=== PATIENT | male | born 1995 | race Caucasian/White ===

== ENCOUNTER 2016-12-03 09:47 | Emergency (ER) ==
[2016-12-03 09:58] VITALS: BP 149/73; TEMP 101.3; BMI 27.3
[2016-12-03 10:16] LABS: BASOPHILS % (AUTO) 0.2 % (0.0-3.0); EOSINOPHILS % (AUTO) 0.4 % (0.0-7.0); HEMATOCRIT 40.7 % (42.0-52.0); HEMOGLOBIN 14.5 g/dl (14.0-18.0); IMMATURE GRANULOCYTE % (AUTO) 0.2 % (0.0-5.0); LYMPHOCYTES # (AUTO) 0.4 K/uL (0.60-3.4); LYMPHOCYTES % (AUTO) 8.1 (10.0-50.0); MEAN CORPUSCULAR HEMOGLOBIN 30.8 pg (27.0-31.0); MEAN CORPUSCULAR HGB CONC 35.6 (31.8-35.4); MEAN CORPUSCULAR VOLUME 86.4 fl (80.0-94.0); MONOCYTES # (AUTO) 0.9 K/uL (0.4-2.0); MONOCYTES % (AUTO) 19.9 (0-10); NEUTROPHILS # (AUTO) 3.3 K/ul (2.0-6.9); NEUTROPHILS % (AUTO) 71.2; PLATELET COUNT 234 10^3/uL (140-440); RED BLOOD COUNT 4.71 10^6/ul (4.70-6.10); WHITE BLOOD COUNT 4.67 K/ul (4.2-10.2)
[2016-12-03] MEDS ORDERED: ZITHROMAX PO STA (10:16)
[2016-12-03] MEDS ORDERED: DECADRON 4 MG/ML SDV IM STA ×2 (10:16→10:17)
[2016-12-03] MEDS ORDERED: DUONEB NEB STA (10:22)
--- NOTE | 2016-12-03 10:28 | DI ---
EXAM: Chest two views HISTORY: Cough COMPARISON: None TECHNIQUE: Two views of the chest were performed FINDINGS: The lungs are clear. There is no pleural effusion or pneumothorax. The heart is normal in size. The mediastinal contour is normal. There are no acute abnormalities of the bones. IMPRESSION: No acute cardiopulmonary process.
[2016-12-03 10:35] LABS: ALBUMIN 4.4 g/dL (3.4-5.0); ALBUMIN/GLOBULIN RATIO 1.33; ANION GAP 13.3; BILIRUBIN,TOTAL 0.45 mg/dL (0.00-1.20); BUN/CREATININE RATIO 12.71; CALCIUM 9.5 mg/dL (8.2-10.2); CREATININE 1.18 mg/dL (0.60-1.10); POTASSIUM 4.3 mmol/L (3.5-5.1); TOTAL PROTEIN 7.7 g/dL (6.4-8.2)
[2016-12-03 10:40] LABS: FLU INTERNAL QC INTERNAL QC VALID; RAPID FLU A NEGATIVE (NEGATIVE); RAPID FLU B NEGATIVE (NEGATIVE)
[2016-12-03] MEDS ORDERED: SODIUM CHLORIDE 1,000 ML IV STA ×2 (10:41→11:47)
[2016-12-03] MEDS ORDERED: ROCEPHIN 1 GM in SODIUM CHLORIDE 50 ML IV STA (10:41)
[2016-12-03] MEDS ORDERED: TYLENOL PO STA (10:41)
[2016-12-03] MEDS ORDERED: ROCEPHIN ONE (10:45)
--- NOTE | 2016-12-03 13:02 | ED.PDOC ---
General ED Provider: Dr. LOR PRINCE Chief Complaint: Fever Stated Complaint: FEVER, COUGH , CHILLS WEAK Time Seen by Physician: 10:00 Mode of Arrival: Walk-In Information Source: Patient Exam Limitations: No limitations Primary Care Provider: ZEB GRAY Nursing and Triage Documentation Reviewed and Agree: Yes Respiratory Complaint Exam - Respiratory Complaint/Exam Onset/Duration: 1 DAY Symptoms Are: Still present Timing: Intermittent Initial Severity: Moderate Current Severity: Moderate Location: Chest Character: Reports: Non-productive cough Aggravating: Reports: None Alleviating: Reports: None Associated Signs and Symptoms: Denies: Rapid breathing, Dyspnea, Fever, Chills, Chest pain, Pleuritic chest pain, Wheezing, Hemoptysis, Dizziness, Calf pain, Calf swelling, Edema, URI, Nasal congestion, Hoarseness, Sinus discomfort, Vomiting, Sore throat, Weight loss, Decreased oral intake, Increased thirst, Increased appetite, Increased urination Related History: Reports: Similar episode History of Healthcare-Acquired Pneumonia: No Related Surgical History: Reports: None Pulmonary Embolism Risk Factors: None Cardiac Risk Factors: Reports: None Pseudomonas Risk Factors: Reports: None Tuberculosis Risk Factors: Reports: None Status Asthmaticus Risk Factors: Reports: None Home Oxygen Use: No Recent Stress Test: No Recent Echo/LV Function: No Current Antibiotic Use: No Current Asthma Medication Use: No Respiratory Distress: None Inadequate Respiratory Effort: No Dysphagia Present: No Stridor Present: No JVD Present: No Accessory Muscle Use: No Retractions: Not Present Diminished Breath Sounds: No Sinus Tenderness: None Grunting Respirations: No Kussmaul Respirations: No Differential Diagnoses: Pneumonia, Bronchitis Review of Systems - Review Of Systems Constitutional: Reports: Malaise Eyes: Reports: No symptoms Ears, Nose, Mouth, Throat: Reports: No symptoms Respiratory: Reports: Cough Cardiac: Reports: No symptoms GI: Reports: No symptoms : Reports: No symptoms Musculoskeletal: Reports: No symptoms Skin: Reports: No symptoms Neurological: Reports: No symptoms Endocrine: Reports: No symptoms Hematologic/Lymphatic: Reports: No symptoms All Other Systems: Reviewed and Negative Past Medical History - Past Medical History Previously Healthy: Yes Endocrine: Reports: None Cardiovascular: Reports: Hypertension Respiratory: Reports: None Hematological: Reports: None Gastrointestinal: Reports: None Genitourinary: Reports: None Neuro/Psych: Reports: None Musculoskeletal: Reports: None Cancer: Reports: None - Surgical History General Surgical History: Reports: Unknown - Family History Family History: Reports: Unknown - Social History Smoking Status: Current some day smoker Hx Substance Use: No Alcohol Screening: Occasionally Physical Exam - Physical Exam Appearance: Well-appearing, No pain distress, Well-nourished Eyes: GERARDO, EOMI, Conjunctiva clear ENT: Ears normal, Nose normal, Oropharynx normal Respiratory: Airway patent, Breath sounds clear, Breath sounds equal, Respirations nonlabored Cardiovascular: RRR, Pulses normal, No rub, No murmur GI/: Soft, Nontender, No masses, Bowel sounds normal, No Organomegaly Musculoskeletal: Normal strength, ROM intact, No edema, No calf tenderness Skin: Warm, Dry, Normal color Neurological: Sensation intact, Motor intact, Reflexes intact, Cranial nerves intact, Alert, Oriented Psychiatric: Affect appropriate, Mood appropriate Interpretation - Radiology Interpretation Radiology Interpretation By: Radiologist Radiology Results: No acute changes Critical Care Note - Critical Care Note Total Time (mins): 0 Course - Course Hematology/Chemistry: 12/03/16 10:05 12/03/16 10:05 Orders, Labs, Meds: Lab Review 12/03/16 10:05 WBC 4.67 RBC 4.71 Hgb 14.5 Hct 40.7 L MCV 86.4 MCH 30.8 MCHC 35.6 H RDW Coeff of Kaleb 12.0 Plt Count 234 Immature Gran % (Auto) 0.2 Neut % (Auto) 71.2 Lymph % (Auto) 8.1 L [place] % (Auto) 19.9 H Eos % (Auto) 0.4 Baso % (Auto) 0.2 Immature Gran # (Auto) 0.0 Neut # 3.3 Lymph # 0.4 L [place] # 0.9 Eos # 0.0 Baso # 0.0 Sodium 136 Potassium 4.3 Chloride 100 Carbon Dioxide 27 Anion Gap 13.3 BUN 15 Creatinine 1.18 H Estimated GFR (MDRD) 76.00 BUN/Creatinine Ratio 12.71 Glucose 105 H Calcium 9.5 Total Bilirubin 0.45 AST 19 ALT 20 Alkaline Phosphatase 79 Total Protein 7.7 Albumin 4.4 Globulin 3.3 Albumin/Globulin Ratio 1.33 Influenza A (Rapid) Negative Influenza B (Rapid) Negative Orders Category Date Time Status NEBULIZER TREATMENT Stat CARDIO 12/03/16 10:22 Completed CBC W/ AUTO DIFF Stat LAB 12/03/16 10:05 Completed COMPREHENSIVE METABOLIC PANEL Stat LAB 12/03/16 10:05 Completed MOLECULAR GROUP A STREP Stat LAB 12/03/16 10:05 Results RAPID FLU A/B Stat LAB 12/03/16 10:05 Completed STREP SCREEN Stat LAB 12/03/16 10:05 Results Acetaminophen [Tylenol] MEDS 12/03/16 10:41 Discontinued 1,000 mg PO ONCE STA Ceftriaxone Sodium [Rocephin] MEDS 12/03/16 10:45 Discontinued 1 gm .ROUTE .STK-MED ONE Ceftriaxone Sodium [Rocephin] 1 gm MEDS 12/03/16 10:41 Discontinued 0.9 % Sodium Chloride [Sodium Chloride] 50 ml IV ONCE Dexamethasone 4 mg/ml Inj [Decadron 4 mg/ml Sdv] MEDS 12/03/16 10:17 Discontinued 4 mg IM ONCE STA Ipratropium/Albuterol Neb [Duoneb] MEDS 12/03/16 10:22 Discontinued 1 vial NEB ONCE STA Sodium Chloride 0.9% [Sodium Chloride] 1,000 ml MEDS 12/03/16 10:41 Discontinued IV BOLUS Sodium Chloride 0.9% [Sodium Chloride] 1,000 ml MEDS 12/03/16 11:47 Discontinued IV BOLUS CHEST, 2 VIEWS PA & LAT Stat RADS 12/03/16 10:06 Completed Medications Discontinued Medications Generic Name Dose Route Start Last Admin Trade Name Freq PRN Reason Stop Dose Admin Acetaminophen 1,000 mg 12/03/16 10:41 12/03/16 11:02 Tylenol PO 12/03/16 10:42 1,000 mg ONCE STA Administration Albuterol/Ipratropium 1 vial 12/03/16 10:22 12/03/16 10:46 Duoneb NEB 12/03/16 10:23 1 vial ONCE STA Administration Dexamethasone Sodium Phosphate 4 mg 12/03/16 10:17 12/03/16 10:39 Decadron 4 Mg/Ml Sdv IM 12/03/16 10:18 4 mg ONCE STA Administration Sodium Chloride 1,000 mls @ 1,000 mls/hr 12/03/16 10:41 12/03/16 11:06 Sodium Chloride IV 12/03/16 11:40 1,000 mls/hr BOLUS STA Administration Ceftriaxone Sodium 1 gm/ 50 mls @ 75 mls/hr 12/03/16 10:41 12/03/16 11:06 Sodium Chloride IV 12/03/16 11:20 75 mls/hr ONCE STA Administration Sodium Chloride 1,000 mls @ 1,000 mls/hr 12/03/16 11:47 12/03/16 11:58 Sodium Chloride IV 12/03/16 12:46 1,000 mls/hr BOLUS STA Administration Vital Signs: Temp Pulse Resp BP Pulse Ox 12/03/16 09:47 101.3 F H 109 H 18 149/73 H 94 L Departure - Departure Time of Disposition: 13:02 Disposition: HOME SELF-CARE Discharge Problem: Fever, Acute bronchitis Instructions: Acute Bronchitis in Children (ED) Condition: Good Pt referred to PMD for follow-up: No Additional Instructions: Please call your Family Physician as soon as possible to schedule a follow-up appointment. Prescriptions: Amoxicillin 500 mg PO Q8HR #21 tablet Azithromycin [Zithromax] 500 mg PO DAILY #6 tablet Allergies/Adverse Reactions: Allergies No Known Drug Allergies Adverse Reaction (Verified 12/03/16 09:53) Home Medications: Ambulatory Orders Amoxicillin 500 mg PO Q8HR #21 tablet 12/03/16 Azithromycin [Zithromax] 500 mg PO DAILY #6 tablet 12/03/16 Lisinopril [Zestril] 10 mg PO DAILY 12/03/16
== END 2016-12-03 13:16 | disposition home or self-care (01) ==
LOC: ED 09:47
DX: J20.9 Acute bronchitis, unspecified (principal); F17.210 Nicotine dependence, cigarettes, uncomplicated
CPT/HCPCS: 36415; 80053; 85025; 87651; 87804; 87880; 94640; 96361; 96365; 96372; 99283

== ENCOUNTER 2016-12-05 18:19 | Emergency (ER) ==
[2016-12-05 18:23] VITALS: BP 143/88; TEMP 99.3; BMI 28.1
--- NOTE | 2016-12-05 18:56 | ED.PDOC ---
General ED Provider: Dr. MARICARMEN PAPPAS JR Chief Complaint: Respiratory Complaint Stated Complaint: seen in er zithromax day three bodyaches and congestion. cough non-productive clear nasal drainage 3 1/2 WEEKS hurts when he coughs. [ End ] Time Seen by Physician: 18:57 Mode of Arrival: Walk-In Information Source: Patient Exam Limitations: No limitations Primary Care Provider: ZEB GRAY Nursing and Triage Documentation Reviewed and Agree: No Review of Systems - Review Of Systems Constitutional: Reports: Chills, Malaise Ears, Nose, Mouth, Throat: Reports: No symptoms Respiratory: Reports: Cough Cardiac: Reports: No symptoms GI: Reports: No symptoms : Reports: No symptoms Musculoskeletal: Reports: Muscle pain Skin: Reports: No symptoms Neurological: Reports: No symptoms Endocrine: Reports: No symptoms Hematologic/Lymphatic: Reports: No symptoms All Other Systems: Other Past Medical History - Past Medical History Previously Healthy: Yes Endocrine: Reports: None Cardiovascular: Reports: Hypertension Respiratory: Reports: None Hematological: Reports: None Gastrointestinal: Reports: None Genitourinary: Reports: None Neuro/Psych: Reports: None Musculoskeletal: Reports: None Cancer: Reports: None Other Pertinent Past Medical History: ADHD A CHILD - Surgical History General Surgical History: Reports: Other (PE TUBES AT 10 YR OF AGE ) - Family History Family History: Reports: Unknown - Social History Smoking Status: Former smoker Hx Substance Use: No Alcohol Screening: Occasionally Physical Exam - Physical Exam Appearance: Ill-appearing, Thin Ill-appearing: Moderate Pain Distress: Moderate Eyes: GERARDO, EOMI, Conjunctiva clear ENT: Oropharynx normal, Erythema Neck: Supple Respiratory: Airway patent, Breath sounds equal, Rhonchi, Wheezes Cardiovascular: RRR, Pulses normal, No rub, No murmur GI/: Soft, Nontender, No masses, Bowel sounds normal, No Organomegaly Musculoskeletal: Normal strength, ROM intact, No edema, No calf tenderness Skin: Warm, Dry, Normal color Psychiatric: Affect appropriate, Mood appropriate Critical Care Note - Critical Care Note Total Time (mins): 0 Course - Course Vital Signs: Temp Pulse Resp BP Pulse Ox 12/05/16 18:20 99.3 F 84 20 143/88 H 95 Departure - Departure Time of Disposition: 18:59 Disposition: HOME SELF-CARE Discharge Problem: Acute bronchitis Instructions: COPD (Chronic Obstructive Pulmonary Disease) (ED), Chronic Bronchitis (ED) Condition: Stable Pt referred to PMD for follow-up: Yes Additional Instructions: bronchitis need to take cough medication to clear mucus and relieve congestion(DO NOT SMOKE ) increase fluids by six cups a day for three days ma finish antibiotic but recommend begin new antibiotic- Augmentin recheck PMD one week if not resolved may begin steroid dose pack if not resolving quickly may add Mucinex to cough medication as needed Prescriptions: Amoxicillin/Potassium Clav [Augmentin 875-125 mg Tab] 1 tab PO BIDWM #14 tablet Guaifenesin/Codeine Phosphate [Robitussin AC Syrup] 10 ml PO Q6H PRN #240 ml PRN Reason: Cough Prednisone 20 mg PO DIRECTED #50 tablet Allergies/Adverse Reactions: Allergies No Known Drug Allergies Adverse Reaction (Verified 12/05/16 18:23) Home Medications: Ambulatory Orders Azithromycin [Zithromax] 500 mg PO DAILY #6 tablet 12/03/16 Lisinopril [Zestril] 10 mg PO DAILY 12/03/16 Amoxicillin/Potassium Clav [Augmentin 875-125 mg Tab] 1 tab PO BIDWM #14 tablet 12/05/16 Guaifenesin/Codeine Phosphate [Robitussin AC Syrup] 10 ml PO Q6H PRN #240 ml Prednisone 20 mg PO DIRECTED #50 tablet 12/05/16
== END 2016-12-05 19:28 | disposition home or self-care (01) ==
LOC: ED 18:19
DX: J20.9 Acute bronchitis, unspecified (principal)
CPT/HCPCS: 99282

== ENCOUNTER 2017-01-29 10:58 | Emergency (ER) ==
[2017-01-29 11:12] VITALS: BP 164/83; TEMP 101.1; BMI 25.4
== END 2017-01-29 12:40 | disposition left against medical advice (07) ==
LOC: ED 10:58
DX: R05 Cough (principal); J02.9 Acute pharyngitis, unspecified; R52 Pain, unspecified

== ENCOUNTER 2017-09-03 04:10 | Emergency (ER) | payer OTHER ==
[2017-09-03 04:48] VITALS: BMI 26.6
[2017-09-03] MEDS ORDERED: SODIUM CHLORIDE 1,000 ML IV STA ×2 (04:54→06:54)
[2017-09-03] MEDS ORDERED: ROCEPHIN 1 GM in SODIUM CHLORIDE 50 ML IV STA (04:54)
[2017-09-03] MEDS ORDERED: ROCEPHIN ONE (05:06)
[2017-09-03 05:09] LABS: BASOPHILS % (AUTO) 0.2 % (0.0-3.0); HEMATOCRIT 45.7 % (42.0-52.0); HEMOGLOBIN 16.5 g/dl (14.0-18.0); IMMATURE GRANULOCYTE % (AUTO) 0.8 % (0.0-5.0); LYMPHOCYTES # (AUTO) 1.1 K/uL (0.60-3.4); LYMPHOCYTES % (AUTO) 4.6 (10.0-50.0); MEAN CORPUSCULAR HEMOGLOBIN 30.6 pg (27.0-31.0); MEAN CORPUSCULAR HGB CONC 36.1 (31.8-35.4); MEAN CORPUSCULAR VOLUME 84.8 fl (80.0-94.0); MONOCYTES # (AUTO) 2.6 K/uL (0.4-2.0); MONOCYTES % (AUTO) 11.1 (0-10); NEUTROPHILS # (AUTO) 19.7 K/ul (2.0-6.9); NEUTROPHILS % (AUTO) 83.3; PLATELET COUNT 288 10^3/uL (140-440); RED BLOOD COUNT 5.39 10^6/ul (4.70-6.10); WHITE BLOOD COUNT 23.65 K/ul (4.2-10.2)
[2017-09-03 05:27] LABS: FLU INTERNAL QC INTERNAL QC VALID; RAPID FLU A NEGATIVE (NEGATIVE); RAPID FLU B NEGATIVE (NEGATIVE)
[2017-09-03 05:27] LABS: ACETAMINOPHEN < 3 ug/ml (10-30); SALICYLATE < 5.0 mg/dL (2.8-20.0)
[2017-09-03 05:36] LABS: ALBUMIN 5.1 g/dL (3.4-5.0); ALBUMIN/GLOBULIN RATIO 1.38; ANION GAP 29.5; BILIRUBIN,TOTAL 0.18 mg/dL (0.00-1.20); BUN/CREATININE RATIO 10.84; CALCIUM 10.4 mg/dL (8.2-10.2); POTASSIUM 5.5 mmol/L (3.5-5.1); TOTAL PROTEIN 8.8 g/dL (6.4-8.2)
[2017-09-03 05:40] LABS: ERYTHROCYTE SEDIMENTATION RATE 0 mm/hr (0-15); ESR INTERNAL QC INTERNAL QC VALID
[2017-09-03 05:41] LABS: CREATININE 4.98 mg/dL (0.60-1.10)
[2017-09-03 05:51] VITALS: BP 131/89; TEMP 98.9
--- NOTE | 2017-09-03 05:54 | ED.PDOC ---
General ED Provider: Dr. ZEB GRAY-ER Chief Complaint: Sore Throat Stated Complaint: hes been ill with sore throat, not eating or drinking much- slurred speech Time Seen by Physician: 04:15 Mode of Arrival: Walk-In Information Source: Patient, Family Exam Limitations: No limitations Primary Care Provider: ZEB GRAY Nursing and Triage Documentation Reviewed and Agree: Yes EENT Complaint Exam - Throat Complaint/Exam Onset/Duration: 2 days Symptoms Are: Still present Timimg: Constant Initial Severity: Mild Current Severity: Mild Aggravating: Reports: None Alleviating: Reports: None Associated Signs and Symptoms: Reports: Chills, Decreased activity, Vomiting. Denies: Fever, Dysphagia, Drooling, Foreign body sensation, Cough, Wheezing, Hoarseness, Sinus discomfort, Nasal congestion, Difficulty breathing, Lethargy, Irritability, Diarrhea, Decreased hearing, Ear drainage Related History: Reports: Similar Episode Uvula Midline: Yes Tasneem-tonsillar Fluctuence: No Scarlatinaform Rash Present: No Stridor Present: No Sinus Tenderness Present: No Tonsillar Hypertrophy Present: No Tonsillar Exudate Present: No Tasneem-tonsillar Swelling Present: No Adenopathy Present: No Splenomegaly Present: No Differential Diagnoses: Pharyngitis Review of Systems - Review Of Systems Constitutional: Reports: Weakness, Loss of appetite Eyes: Reports: No symptoms Ears, Nose, Mouth, Throat: Reports: Throat pain Respiratory: Reports: No symptoms Cardiac: Reports: No symptoms GI: Reports: No symptoms : Reports: No symptoms Musculoskeletal: Reports: No symptoms Skin: Reports: No symptoms Neurological: Reports: Cognitive dysfunction Endocrine: Reports: No symptoms Hematologic/Lymphatic: Reports: No symptoms All Other Systems: Reviewed and Negative Past Medical History - Past Medical History Previously Healthy: Yes Endocrine: Reports: None Cardiovascular: Reports: Hypertension Respiratory: Reports: None Hematological: Reports: None Gastrointestinal: Reports: None Genitourinary: Reports: None Neuro/Psych: Reports: None Musculoskeletal: Reports: None Cancer: Reports: None Other Pertinent Past Medical History: ADHD A CHILD - Surgical History General Surgical History: Reports: Other (PE TUBES AT 10 YR OF AGE ) - Family History Family History: Reports: Unknown - Social History Smoking Status: Current every day smoker, Light tobacco smoker Hx Substance Use: No Alcohol Screening: Occasionally - Immunizations Tetanus Shot up to Date: (UNKNOWN) Physical Exam - Physical Exam Appearance: Well-appearing Eyes: GERARDO, EOMI, Conjunctiva clear ENT: Erythema Neck: Supple Respiratory: Airway patent, Breath sounds clear, Breath sounds equal, Respirations nonlabored Cardiovascular: RRR, Pulses normal, No rub, No murmur GI/: Soft, Nontender, No masses, Bowel sounds normal, No Organomegaly Musculoskeletal: Normal strength, ROM intact, No edema, No calf tenderness Skin: Warm, Dry, Normal color Neurological: Sensation intact, Motor intact, Reflexes intact, Cranial nerves intact, Alert, Oriented Psychiatric: Affect appropriate, Mood appropriate Critical Care Note - Critical Care Note Total Time (mins): 45 Course - Course Hematology/Chemistry: 09/03/17 05:05 09/03/17 05:05 Orders, Labs, Meds: Lab Review 09/03/17 09/03/17 09/03/17 05:00 05:05 05:05 WBC 23.65 H RBC 5.39 Hgb 16.5 Hct 45.7 MCV 84.8 MCH 30.6 MCHC 36.1 H RDW Coeff of Kaleb 13.2 Plt Count 288 Immature Gran % (Auto) 0.8 Neut % (Auto) 83.3 Lymph % (Auto) 4.6 L [place] % (Auto) 11.1 H Eos % (Auto) 0.0 Baso % (Auto) 0.2 Immature Gran # (Auto) 0.2 Neut # 19.7 H Lymph # 1.1 [place] # 2.6 H Eos # 0.0 Baso # 0.0 ESR Sodium 136 Potassium 5.5 H Chloride 98 Carbon Dioxide 14 L Anion Gap 29.5 BUN 54 H Creatinine 4.98 H* Estimated GFR (MDRD) 14.00 BUN/Creatinine Ratio 10.84 Glucose 102 H Calcium 10.4 H Total Bilirubin 0.18 AST 380 H ALT 92 H Alkaline Phosphatase 84 Total Protein 8.8 H Albumin 5.1 H Globulin 3.7 Albumin/Globulin Ratio 1.38 Salicylate Level mg/dL Acetaminophen Plasma/Serum Alcohol Influenza A (Rapid) Negative Influenza B (Rapid) Negative 09/03/17 09/03/17 05:05 05:05 WBC RBC Hgb Hct MCV MCH MCHC RDW Coeff of Kaleb Plt Count Immature Gran % (Auto) Neut % (Auto) Lymph % (Auto) [place] % (Auto) Eos % (Auto) Baso % (Auto) Immature Gran # (Auto) Neut # Lymph # [place] # Eos # Baso # ESR 0 Sodium Potassium Chloride Carbon Dioxide Anion Gap BUN Creatinine Estimated GFR (MDRD) BUN/Creatinine Ratio Glucose Calcium Total Bilirubin AST ALT Alkaline Phosphatase Total Protein Albumin Globulin Albumin/Globulin Ratio Salicylate Level mg/dL < 5.0 Acetaminophen < 3 L Plasma/Serum Alcohol < 10.0 Influenza A (Rapid) Influenza B (Rapid) Orders Category Date Time Status EKG-(ED ONLY) Stat CARDIO 09/03/17 04:52 Ordered NPO REMINDER: IMAGING ONCE CARE 09/03/17 05:03 Active Core Baker [ED HAND HARDENER APPLIED] .ONCE EMERGENCY 09/03/17 05:04 Active IV [ED IV/MEDIPORT/POWERPORT] .ONCE EMERGENCY 09/03/17 04:53 Active BLOOD ALCOHOL Stat LAB 09/03/17 05:05 Completed BLOOD CULTURE Stat LAB 09/03/17 05:05 Received CBC W/ AUTO DIFF Stat LAB 09/03/17 05:05 Completed COMPREHENSIVE METABOLIC PANEL Stat LAB 09/03/17 05:05 Completed ESR Stat LAB 09/03/17 05:05 Completed LACTIC ACID Stat LAB 09/03/17 05:50 Ordered MOLECULAR GROUP A STREP Stat LAB 09/03/17 05:00 Results PROCALCITONIN Stat LAB 09/03/17 Ordered RAPID FLU A/B Stat LAB 09/03/17 05:00 Completed SALICYLATE Stat LAB 09/03/17 05:05 Completed STREP SCREEN Stat LAB 09/03/17 05:00 Results TYLENOL LEVEL [ACETAMINOPHEN] Stat LAB 09/03/17 05:05 Completed URINALYSIS C & S IF INDICATED Stat LAB 09/03/17 04:51 Uncollected URINE DRUG SCREEN (RAPID FOR ED) [DRUG SCREEN, URINE, LAB 09/03/17 04:53 Uncollected RAPID] Stat 0.9 % Sodium Chloride [Saline Flush] MEDS 09/03/17 04:53 Ordered 1 syr IVF PRN PRN Ceftriaxone Sodium [Rocephin] MEDS 09/03/17 05:06 Discontinued 1 gm .ROUTE .STK-MED ONE Ceftriaxone Sodium [Rocephin] 1 gm MEDS 09/03/17 04:54 Discontinued 0.9 % Sodium Chloride [Sodium Chloride] 50 ml IV ONCE Sodium Chloride 0.9% [Sodium Chloride] 1,000 ml MEDS 09/03/17 04:54 Active IV 100 mls/hr CT HEAD W/O CONTRAST Stat RADS 09/03/17 04:[address] SOFT TISSUE NECK W/CONTRAST Stat RADS 09/03/17 05:[address] SOFT TISSUE NECK W/O CONTR Stat RADS 09/03/17 05:48 Ordered CXR [CHEST, 1V AP ONLY] Stat RADS 09/03/17 05:04 Ordered Medications Generic Name Dose Route Start Last Admin Trade Name Freq PRN Reason Stop Dose Admin Sodium Chloride 1,000 mls @ 100 mls/hr 09/03/17 04:54 09/03/17 05:13 Sodium Chloride IV 09/03/17 14:53 100 mls/hr .Q10H STA Administration Sodium Chloride 1 syr 09/03/17 04:53 09/03/17 05:13 Saline Flush IVF 1 syr PRN PRN Administration To flush IV Discontinued Medications Generic Name Dose Route Start Last Admin Trade Name Freq PRN Reason Stop Dose Admin Ceftriaxone Sodium 1 gm/ 50 mls @ 75 mls/hr 09/03/17 04:54 09/03/17 05:14 Sodium Chloride IV 09/03/17 05:33 75 mls/hr ONCE STA Administration Vital Signs: Temp Pulse Resp BP Pulse Ox 09/03/17 05:50 98.9 F 104 H 24 131/89 96 09/03/17 04:11 98 F 118 H 16 160/65 H 95 Departure - Departure Time of Disposition: 06:38 Disposition: TSF SHORT-TRM HOSP Discharge Problem: Acute urinary retention Acute renal failure (ARF) Qualifiers: Acute renal failure type: unspecified Qualified Code(s): N17.9 - Acute kidney failure, unspecified Discharge Problem: (Ruled Out): Urinary tract obstruction Condition: Stable Pt referred to PMD for follow-up: Yes Allergies/Adverse Reactions: Allergies No Known Drug Allergies Adverse Reaction (Verified 09/03/17 04:49) Home Medications: Ambulatory Orders Lisinopril [Zestril] 10 mg PO DAILY 12/03/16 Transfer Form Completed: Yes Disposition Discussed With: Patient, Family
--- NOTE | 2017-09-03 06:34 | CT ---
EXAM: CT soft tissue neck without intravenous contrast 09/03/2017. Sagittal and coronal reformatted images obtained HISTORY: Throat swelling. Difficulty swallowing COMPARISON: None. FINDINGS: The nasopharynx and oropharynx show no gross abnormality. The parapharyngeal and retropha ryngeal soft tissues appear within normal limits. The epiglottis is within normal limits. The laryn geal airway shows no acute process. The visualized portion of the trachea appears patent and within the midline. No dominant mass or abscess identified. No acute osseous abnormality The pulmonary apices appear within normal limits. IMPRESSION: 1. No acute process identified within the soft tissues of the neck. 2. Technically limited examination due to the lack of intravenous contrast.
--- NOTE | 2017-09-03 06:37 | CT ---
EXAM: CT head without contrast 09/03/2017. Sagittal and coronal reformatted images obtained HISTORY: Mental status changes COMPARISON: None. FINDINGS: There is no evidence of intracranial hemorrhage. The midline is maintained. There is no h ydrocephalus. No cerebellar tonsillar ectopia. Evaluation of the calvarium shows no fracture. Th e mastoid air cells are normally pneumatized. IMPRESSION: No acute intracranial abnormality.
[2017-09-03 06:43] LABS: BILIRUBIN,URINE Negative (NEGATIVE); KETONES,URINE Negative (NEGATIVE); LEUKOCYTE ESTERASE ,URINE Negative (NEGATIVE); NITRITE,URINE Negative (NEGATIVE); PH,URINE 5.5 (5-9); PROTEIN,URINE 2+ (NEGATIVE); URINE, BLOOD 2+ (NEGATIVE)
[2017-09-03 06:48] LABS: ADD URINE MICROSCOPIC YES
[2017-09-03 06:49] LABS: BACTERIA,URINE 1+ (NOT PRESENT)
--- NOTE | 2017-09-03 06:51 | DI ---
EXAM: Chest, single view, 09/03/2017 HISTORY: Hypertension COMPARISON: 12/03/2016 FINDINGS / IMPRESSION: Cardiomediastinal contours appear stable. Basilar interstitial opacitis may relate to atelectasis or pneumonitis. There is no focal pulmonary consolidation. No pleural effusio n or pneumothorax.
[2017-09-03 06:54] LABS: ABG BASE EXCESS -12 (-2.0-2.0); ABG HCO3 15.2 (22.0-26.0); ABG PCO2 32.2 mmHg (35-45); ABG PH 7.281 (7.35-7.45); ABG TCO2 16 (22.0-28.0)
[2017-09-03 06:59] LABS: COCAIN SCREEN,URINE NEGATIVE (NEGATIVE)
== END 2017-09-03 07:44 | disposition short-term general hospital (02) ==
LOC: ED 04:10
DX: N17.9 Acute kidney failure, unspecified (principal); R53.1 Weakness; R00.0 Tachycardia, unspecified; F17.210 Nicotine dependence, cigarettes, uncomplicated
CPT/HCPCS: 36415; 80053; 80306; 80307; 81001; 82803; 83605; 84145; 85025; 85651; 87040; 87086; 87651; 87804; 87880; 93005; 93010; 96361; 96365; 99285